=== PATIENT | male | born 1990 | race Caucasian/White ===

== ENCOUNTER 2020-06-16 21:55 | Emergency (ER) | payer SELFPAY ==
--- NOTE | 2020-06-16 22:02 | XR_ITS ---
WS: [id number] Left leg including the tibia and fibula, AP and lateral views, 06/16/2020 Clinical Data: trauma Comparison: None. Findings: There is a comminuted fracture of the distal third of the left tibia. There are 2 fractures of the di stal left fibula at the junction of the middle and distal thirds and also 5 cm distal to the first fr acture. The visualized left knee and left ankle are unremarkable. XR/XR tibia fibula LT 2V [id number] Impression: Fractures of the distal thirds of the left tibia and fibula.
--- NOTE | 2020-06-16 22:03 | W.ED.LOWEXIN ---
HPI - Extremity Injury (Lower) General: Chief Complaint: Extremity Injury, Lower Stated Complaint: KICKED BY A COW Time Seen by Provider: 06/16/20 22:02 History of Present Illness: HPI Narrative: Patient arrived via ambulance with an IV in place and received 100 mics of fentanyl patient was kicked by a cow in his left lower extremity earlier this evening cannot bear weight has swelling to the mid diaz area complaint: leg injury Onset (ago): minute(s) Type of Injury: blunt Place: home Severity: moderate Severity scale (1-10): 8 Relieving factors: immobilization Exacerbating factors: weight bearing and movement Context: direct blow Associated symptoms: Reports no associated symptoms Treatments prior to arrival: other (Fentanyl via ambulance) Review of Systems Const: Denies: fever(s), chills or body aches Eyes: Denies: change in vision or blurry vision ENMT: Denies: throat pain or nasal congestion Card: Denies: chest pain or dyspnea on exertion Resp: Denies: dyspnea, productive cough or non-productive cough GI: Denies: abdominal pain, nausea or vomiting : Denies: difficulty urinating Musc: Reports: extremity pain and extremity swelling Skin/Breast: Denies: rash Neuro: Denies: headache(s) Psych: Denies: anxiety or depression Addi/Lymph: Denies: easy bruising Physical Exam Const: COMMON NORMALS: no acute distress, average body habitus and patient oriented x3 HENMT: COMMON NORMALS: normocephalic HEAD & SCALP: normal to inspection and normocephalic FACE & SINUS: normal facial exam Eye: COMMON NORMALS: conjunctivae normal GENERAL EYE: appearance normal, both eyes and all related structures CONJUNCTIVA: Yes conjunctivae normal Neck/C-Spine: COMMON NORMALS: no JVD Chest: COMMONS NORMALS: normal inspection of the chest Resp: COMMON NORMALS: normal respiratory effort and clear to auscultation bilaterally AUSCULTATION: clear to auscultation bilaterally Cardio: COMMON NORMALS: no JVD, regular rate and regular rhythm RATE: regular rate RHYTHM: regular rhythm GI: COMMON NORMALS: Normal to inspection, nondistended, normoactive bowel sounds present Extremity: LEFT LOWER EXTREMITY: Yes lower leg (Swelling and bruising. Good cap refill distally pulses present) Neuro: COMMON NORMALS: patient oriented x3 Course Vital Signs: Vital signs: Vital Signs Temperature 98.5 F 06/16/20 22:06 Pulse Rate 69 06/16/20 23:48 Respiratory Rate 16 06/16/20 23:48 Blood Pressure 104/69 06/16/20 23:48 Pulse Oximetry 98 06/16/20 23:48 MDM - Extremity Injury (Lower) MDM Narrative: Medical decision making narrative: Spoke with Dr. Lucia Randall And agrees accept the patient wants him admitted to the hospitalist and will do surgery morning asked that he be placed n.p.o. Pulses were dopplered again after movement from x-ray patient has good strong pulse. Patient after speaking with the other people and after we got him admitted to the hospital on patient is decided he wants be transferred to [facility] instead of staying here. Dr. Myers will be notified in the morning. Spoke with JULIO CESAR Kat made her up at [facility] and she agreed except patient for direct admission. Discharge Plan Discharge Admit Provider: Jack Melgar Coding Level of Care Code ED Grit Blaster for Chg Fwd Exam Comprehensive
[2020-06-16 22:06] VITALS: BP 118/68; PULSE 79; RESP 16; TEMP 36.9; O2SAT 98; BMI 33.4
[2020-06-16 22:09] VITALS: RESP 15; O2SAT 98
[2020-06-16] MEDS: fentaNYL 50 mcg/mL INJ 2mL IVP (22:09)
[2020-06-16 22:14] VITALS: PULSE 71
[2020-06-16 22:16] VITALS: PULSE 77; RESP 16; O2SAT 94
--- NOTE | 2020-06-16 22:35 | PC.NURSE ---
pedal pulses found with doppler on left foot and marked with pen, bpm 74
[2020-06-16 23:48] VITALS: BP 104/69; PULSE 69; RESP 16; O2SAT 98
[2020-06-17 01:17] VITALS: PULSE 72; RESP 17; O2SAT 92
[2020-06-17 02:02] VITALS: PULSE 96; RESP 17; O2SAT 96
[2020-06-17 02:11] VITALS: BP 110/73; PULSE 97; RESP 18; O2SAT 96
[2020-06-17 02:46] VITALS: RESP 18
[2020-06-17] MEDS: morphine 4 mg/mL SDV 1 mL IVP (02:46)
== END 2020-06-17 02:55 | disposition other institution (70) ==
LOC: ER 22:28 → MEDSURG 06-17 00:58
PROVIDERS: Emergency Provider Nurse Practitioner Family
DX: S82.252A Displaced comminuted fracture of shaft of left tibia, initial encounter for closed fracture (principal); S82.832A Other fracture of upper and lower end of left fibula, initial encounter for closed fracture; W55.22XA Struck by cow, initial encounter
CPT/HCPCS: 12345; 29505; 73590; 96374; 96375; 99283; 99285; J2270; J3010